=== PATIENT | male | born 1995 | race Caucasian/White ===

== ENCOUNTER 2019-08-26 03:07 | Emergency (ER) | payer SELFPAY ==
[~2019-08-26] VITALS: Ht 177.8 cm; Wt 109.1 kg
[2019-08-26] MEDS ORDERED: LORazepam 2 mg/ml vial IM ONE (03:20)
[2019-08-26] MEDS ORDERED: haloperidol lactate 5mg/ml inj IM ONE (03:20)
[2019-08-26] MEDS ORDERED: diphenhydrAMINE 50 mg/ml inj IM ONE (03:20)
[2019-08-26 03:30] VITALS: BP 138/81
[2019-08-26] MEDS ORDERED: NO HOME MEDS (04:15)
[2019-08-26 04:19] LABS: BASOPHILS # (AUTO) 0.1 X10'3 (0-0.2); BASOPHILS % (AUTO) 1.4 % (0-1); CLARITY,URINE CLEAR (Clear); COLOR,URINE YELLOW (Yellow); EOSINOPHILS # (AUTO) 0.1 X10'3 (0-0.9); EOSINOPHILS % (AUTO) 1.4 % (0-6); GLUCOSE, URINE NEGATIVE (Neg); HEMATOCRIT 43.5 % (42.0-52.0); KETONES,URINE NEGATIVE (Neg); LEUKOCYTE ESTERASE ,URINE NEGATIVE (Neg); LYMPHOCYTES % (AUTO) 30.4 % (21-51); MEAN CORPUSCULAR HEMOGLOBIN 29.2 PG (27.0-31.0); MEAN CORPUSCULAR HGB CONC 34.5 g/dL (33.0-36.5); MEAN CORPUSCULAR VOLUME 84.6 FL (78-98); MEAN PLATELET VOLUME 9.4 FL (7.4-10.4); MONOCYTES # (AUTO) 0.4 X10'3 (0-0.9); MONOCYTES % (AUTO) 5.6 % (2-12); NEUTROPHILS % (AUTO) 61.2 % (42-75); NITRITES, URINE NEGATIVE (Neg); OCCULT BLOOD,URINE SMALL (Neg); PLATELET COUNT 222 X10'3 (140-440); PROTEIN,URINE NEGATIVE (Neg); RED BLOOD COUNT 5.14 X10'6 (4.70-6.10); RED CELL DISTRIBUTION WIDTH 13.5 % (11.5-14.5); UROBILINOGEN,URINE 0.2 E.U/dL (0.2-1.0); WHITE BLOOD COUNT 6.5 X10'3 (4.5-11.0)
--- NOTE | 2019-08-26 04:20 | NUR ---
TESSIE WISE COMPLETED FAXED TO PHARMACY
[2019-08-26 04:21] LABS: UA COLLECTION TYPE CLN CATCH MIDSTREAM
[2019-08-26 04:25] LABS: BACTERIA,URINE NONE SEEN /HPF (Neg); COARSE GRANULAR CAST 0-3 /LPF (NEGATIVE); RBC,URINE 0-2 /HPF (0-2); SQUAMOUS EPITHELIAL CELL,UR FEW /LPF (FEW); WBC,URINE NONE SEEN /HPF (0-4)
--- NOTE | 2019-08-26 04:30 | NUR ---
Pt roomed in bed 27. Emotional and expressing concerns to RN handing off.
[2019-08-26 04:33] LABS: ANION GAP 14 (8-16); BILIRUBIN,TOTAL 0.3 MG/DL (0.1-1.0); BLOOD UREA NITROGEN 10 MG/DL (7-18); BUN/CREATININE RATIO 10.2 (5.4-32.0); CALCIUM 9.3 MG/DL (8.5-10.1); CHLORIDE 107 MMOL/L (99-107); CREATININE 0.98 MG/DL (0.60-1.10); GLUCOSE 105 MG/DL (70-104); POTASSIUM 3.7 MMOL/L (3.5-5.1); SODIUM 144 MMOL/L (135-145); eGFR > 90 ML/MIN
[2019-08-26 04:34] LABS: ALANINE AMINOTRANSFERASE 43 U/L (12-78); ALBUMIN 4.5 G/DL (3.4-5.0); ALBUMIN/GLOBULIN RATIO 1.3 (1.1-1.5); ALKALINE PHOSPHATASE 82 IU/L (46-116); ASPARTATE AMINO TRANSFERASE 38 U/L (10-37); TOTAL PROTEIN 8.1 G/DL (6.4-8.2)
[2019-08-26 04:35] LABS: URINE AMPHETAMINE SCREEN NEGATIVE (Neg); URINE BARBITUATE SCREEN NEGATIVE (Neg); URINE BENZODIAZEPINES SCREEN NEGATIVE (Neg); URINE CANNABINOID SCREEN POSITIVE (Neg); URINE COCAINE SCREEN NEGATIVE (Neg); URINE METHADONE SCREEN NEGATIVE (Neg); URINE OPIATE SCREEN NEGATIVE (Neg); URINE PHENCYCLIDINE SCREEN NEGATIVE (Neg)
[2019-08-26 04:49] LABS: ETHANOL 0.154 GM/DL (0.0-0.010)
--- NOTE | 2019-08-26 05:43 | NUR ---
Pt resting quietly, respirations normal, no s/s of distress.
--- NOTE | 2019-08-26 07:43 | NUR ---
FAXED [facility]
--- NOTE | 2019-08-26 07:53 | NUR ---
resting quietly in bed.
[2019-08-26] MEDS ORDERED: NICOTINE POLACRILEX 4 MG LOZENGE BC PRN (08:15)
[2019-08-26] MEDS ORDERED: LORazepam 1 MG tablet PO ONE (08:15)
--- NOTE | 2019-08-26 09:13 | NUR ---
pt woke up ~0815 anxious, sweating, shaking, tearful, wrapped up in blankets in bed rocking back and forth stating he was anxious and scared. He was scared because he didn't know what was happening and he just wanted to go home. Previous order for B52 still in AUG but RN talked to Dr. Paredes about order for PO Ativan to calm pt so he can still be easily awakened to talk to [facility] to be evaluated. Order obtained for 2mg Ativan PO x1. Pt very hesitant to take meds because he doesn't normally take meds for anxiety, pt just wanted to lay there and calm himself, but pt visibly anxious and does not appear to have the capacity to calm himself. Pt very fearful to take a med, pt afraid what will happen if we sedate him, afraid of the situation of being in the ER. RN built a repore with pt and started gaining trust, RN reasurred pt that we were here for him to help him. Pt stated he didn't want to take meds because he wanted to be clear of mind, pt visibly anxious and tearful. RN educated pt on Ativan and encouraged pt to take it to help calm him so he could speak to [facility] with a clear mind. Pt reluctantly obliged. Pt now resting quietly and relaxed in bed.
--- NOTE | 2019-08-26 09:47 | NUR ---
pt awake and talking to Uche with [facility].
--- NOTE | 2019-08-26 10:28 | NUR ---
pts mom at bedside. pt calm and talking with mom.
== END 2019-08-26 11:46 | disposition home or self-care (01) ==
LOC: ER 03:08
DX: F23 Brief psychotic disorder (principal); F10.129 Alcohol abuse with intoxication, unspecified; F12.90 Cannabis use, unspecified, uncomplicated; R45.6 Violent behavior; Z91.5 Personal history of self-harm; Y90.0 Blood alcohol level of less than 20 mg/100 ml
CPT/HCPCS: 36415; 80053; 80305; 80320; 81001; 84443; 85025; 99285